=== PATIENT | male | born 1995 | race Caucasian/White ===

== ENCOUNTER 2016-10-20 16:07 | Inpatient (IN) | payer BC ==
[~2016-10-20] VITALS: Ht 167.6 cm; Wt 72.9 kg
[2016-10-20 16:12] VITALS: BP 143/94; PULSE 64; RESP 17; TEMP 98.2; O2SAT 100
--- NOTE | 2016-10-20 16:30 | PD ---
HPI Chief Complaint: Injury Time Seen by Provider: 16:30 Travel History International Travel<30 days: No Contact w/Intl Traveler<30days: No Traveled to known affect area: No History of Present Illness HPI 21-year-old male presents to the emergency department with pain to the right knee after skateboarding accident. Patient states he was skateboarding and his board flipped up and hit him directly in the patella. Patient now is unable to extend the right lower extremity, and has pain below the patella. He felt that "could be dislocated" patient denies pain in the foot or ankle. He denies hip or back pain. He denies any other injury. He has no known drug allergies. Patient last ate at 1530 hrs. Patient has no other medical problems and takes no medications. PFSH Past Medical History Medical History: Denies Significant Hx Tetanus Vaccination: > 5 Years Influenza Vaccination: No (UNKNOWN) Past Surgical History Oral Surgery: Yes (WISDOM TEETH REMOVAL) Tonsillectomy: Yes Social History Alcohol Use: Yes (SOCIALLY) Tobacco Use: No Substance Use: No Allergies-Medications (Allergen,Severity, Reaction): Coded Allergies: No Known Allergies (Unverified , 10/20/16) Reported Meds & Prescriptions Reported Meds & Active Scripts Active No Active Prescriptions or Reported Medications Review of Systems Except as stated in HPI: all other systems reviewed are Neg General / Constitutional: No: Fever Eyes: No: Visual changes HENT: No: Headaches Cardiovascular: No: Chest Pain or Discomfort Respiratory: No: Shortness of Breath Gastrointestinal: No: Abdominal Pain Genitourinary: No: Dysuria Musculoskeletal: Positive: Arthralgias (see history present illness.), Limited ROM, Pain Skin: No Rash Neurologic: No: Weakness Psychiatric: No: Depression Endocrine: No: Polydipsia Hematologic/Lymphatic: No: Easy Bruising Physical Exam Narrative GENERAL: Patient is in mild distress. SKIN: Warm and dry. HEAD: Atraumatic. Normocephalic. EYES: Pupils equal and round. No scleral icterus. No injection or drainage. ENT: No nasal bleeding or discharge. Mucous membranes pink and moist. NECK: Trachea midline. No JVD. CARDIOVASCULAR: Regular rate and rhythm. RESPIRATORY: No accessory muscle use. Clear to auscultation. Breath sounds equal bilaterally. GASTROINTESTINAL: Abdomen soft, non-tender, nondistended. Hepatic and splenic margins not palpable. MUSCULOSKELETAL: Extremities without clubbing, cyanosis, or edema. No obvious deformities. NEUROLOGICAL: Awake and alert. No obvious cranial nerve deficits. Motor grossly within normal limits. Five out of 5 muscle strength in the arms and legs. Normal speech. PSYCHIATRIC: Appropriate mood and affect; insight and judgment normal. Data Data Last Documented VS Vital Signs Date Time Temp Pulse Resp B/P Pulse Ox O2 Delivery O2 Flow Rate FiO2 10/20/16 16:24 18 Room Air 10/20/16 16:12 98.2 64 143/94 100 Orders Basic Metabolic Panel (Bmp) (10/20/16 16:36) Complete Blood Count With Diff (10/20/16 16:36) Prothrombin Time / Inr (Pt) (10/20/16 16:36) Act Partial Throm Time (Ptt) (10/20/16 16:36) Iv Access Insert/Monitor (10/20/16 16:36) Ecg Monitoring (10/20/16 16:36) Oximetry (10/20/16 16:36) NPO (10/20/16 16:36) Morphine Inj (Morphine Inj) (10/20/16 16:45) Ondansetron Inj (Zofran Inj) (10/20/16 16:45) Sodium Chlor 0.9% 1000 Ml Inj (Ns 1000 M (10/20/16 16:36) Sodium Chloride 0.9% Flush (Ns Flush) (10/20/16 16:45) Chest, Single Ap (10/20/16 16:36) Ice/Cold Pack (10/20/16 16:36) Knee, Ltd (1 Or 2vws) (10/20/16 16:36) Splinting (10/20/16 ) Immobilizer Knee 20 Inch (10/20/16 ) Ice Cuff (10/20/16 ) Labs Laboratory Tests Test 10/20/16 17:10 White Blood Count 8.5 TH/MM3 Red Blood Count 4.92 MIL/MM3 Hemoglobin 16.3 GM/DL Hematocrit 47.0 % Mean Corpuscular Volume 95.5 FL Mean Corpuscular Hemoglobin 33.2 PG Mean Corpuscular Hemoglobin 34.8 % Concent Red Cell Distribution Width 12.5 % Platelet Count 204 TH/MM3 Mean Platelet Volume 9.0 FL Neutrophils (%) (Auto) 77.5 % Lymphocytes (%) (Auto) 11.3 % Monocytes (%) (Auto) 10.6 % Eosinophils (%) (Auto) 0.1 % Basophils (%) (Auto) 0.5 % Neutrophils # (Auto) 6.6 TH/MM3 Lymphocytes # (Auto) 1.0 TH/MM3 Monocytes # (Auto) 0.9 TH/MM3 Eosinophils # (Auto) 0.0 TH/MM3 Basophils # (Auto) 0.0 TH/MM3 CBC Comment DIFF FINAL Differential Comment Prothrombin Time 12.0 SEC Prothromb Time International 1.1 RATIO Ratio Activated Partial 23.8 SEC Thromboplast Time Sodium Level 139 MEQ/L Potassium Level 3.9 MEQ/L Chloride Level 100 MEQ/L Carbon Dioxide Level 29.4 MEQ/L Anion Gap 10 MEQ/L Blood Urea Nitrogen 16 MG/DL Creatinine 1.29 MG/DL Estimat Glomerular Filtration 70 ML/MIN Rate Random Glucose 104 MG/DL Calcium Level 9.6 MG/DL MDM Medical Decision Making Medical Screen Exam Complete: Yes Emergency Medical Condition: Yes Differential Diagnosis Right knee contusion. Right knee fracture. Right knee. Narrative Course Patient is medically stable at time of exam. Patient is made nothing by mouth. Labs ordered include a CBC, CMP, PT PTT and INR Right knee x-rays and chest x-ray ordered. IV access is obtained patient is given 4 mg morphine IV as well as 4 mg Zofran IV. Patient is given 1000 miles normal saline bolus. X-ray shows patella fracture with displacement per radiology. 1715 hrs. call was placed to Dr. Blanchard the orthopedic on-call. Splint is ordered with ice cuff. Knee immobilizer with ice compresses placed by myself in the [employer]. Patient was discussed with Dr. Blanchard who recommended admission and nothing by mouth after midnight for surgery in the morning. 1830 hrs. call was placed to hospitalist for admission. Diagnosis Primary Impression: Patellar fracture Qualified Code: S82.031A - Closed displaced transverse fracture of right patella, initial encounter Admitting Information Admitting Physician Requests: Admit Scripts No Active Prescriptions or Reported Meds Condition: Stable Mohsen Onofre Oct 20, 2016 16:30
[2016-10-20] MEDS ORDERED: SODIUM CHLOR 0.9% 1000 ML INJ 1,000 ML IV SCH (16:36)
[2016-10-20] MEDS ORDERED: SODIUM CHLORIDE 0.9% FLUSH 5 ML FLUSH IVF PRN (16:45)
[2016-10-20] MEDS ORDERED: MORPHINE SULFATE 4 MG/ML INJ IV PUSH ONE (16:45)
[2016-10-20] MEDS ORDERED: ONDANSETRON HCL 4 MG/2 ML VIAL IVP ONE (16:45)
[2016-10-20 17:35] LABS: AUTOMATED NEUTROPHIL # 6.6 TH/MM3 (1.8-7.7); BASOPHIL % 0.5 % (0.0-2.0); EOSINOPHIL % 0.1 % (0.0-4.0); HEMO FLAGS DIFF FINAL; LYMPH % 11.3 % (9.0-44.0); MEAN CELL VOLUME 95.5 FL (80.0-100.0); MEAN CORPUSCULAR HEMOGLOBIN 33.2 PG (27.0-34.0); MEAN CORPUSCULAR HGB CONC 34.8 % (32.0-36.0); MONO % 10.6 % (0.0-8.0); NEUT % 77.5 % (16.0-70.0); PLATELET COUNT 204 TH/MM3 (150-450); RED BLOOD COUNT 4.92 MIL/MM3 (4.50-5.90); RED CELL DISTRIBUTION WIDTH 12.5 % (11.6-17.2); WHITE BLOOD COUNT 8.5 TH/MM3 (4.0-11.0)
--- NOTE | 2016-10-20 17:35 | RADRPT ---
EXAM DATE/TIME: 10/20/2016 16:56 [facility] COMPARISON: No previous studies available for comparison. INDICATIONS : Shortness of breath. MEDICAL HISTORY : None. SURGICAL HISTORY : None. ENCOUNTER: Initial ACUITY: 1 day PAIN SCORE: 0/10 LOCATION: Bilateral chest FINDINGS: A single view of the chest demonstrates the lungs to be symmetrically aerated without evidence of mas s, infiltrate or effusion. The cardiomediastinal contours are unremarkable. Osseous structures are intact. CONCLUSION: No acute disease. Gavino Montes De Oca MD on October 20, 2016 at 17:33 Board Certified Radiologist. This report was verified electronically.
--- NOTE | 2016-10-20 17:40 | RADRPT ---
EXAM DATE/TIME: 10/20/2016 16:59 [facility] COMPARISON: No previous studies available for comparison. INDICATIONS : Pain from injury from skateboard ramming upward into knee. MEDICAL HISTORY : None. SURGICAL HISTORY : None. ENCOUNTER: Initial ACUITY: 1 day PAIN SCORE: 10/10 LOCATION: Right knee. FINDINGS: Limited AP and lateral views of the right knee were obtained and demonstrate a transverse fracture th rough the mid patella with the fracture fragment approximately 4 cm. There is overlying sof t tissue swelling. The distal femur, proximal tibia and fibula appear intact. CONCLUSION: Transverse fracture through the mid patella there is Gavino Montes De Oca MD on October 20, 2016 at 17:36 Board Certified Radiologist. This report was verified electronically.
[2016-10-20 17:47] LABS: APTT (PATIENT) 23.8 SEC (24.3-30.1); INTERNATIONAL NORMALIZED RATIO 1.1 RATIO
[2016-10-20 17:59] LABS: BICARBONATE 29.4 MEQ/L (21.0-32.0); POTASSIUM 3.9 MEQ/L (3.5-5.1)
[2016-10-20] MEDS ORDERED: NALOXONE HCL 0.4 MG/ML AMP IV PRN (19:00)
[2016-10-20] MEDS ORDERED: SODIUM CHLORIDE 0.9% FLUSH 5 ML FLUSH FLUSH PRN (19:00)
--- NOTE | 2016-10-20 19:03 | HHI.HP ---
[facility] No Primary Care Physician Admission Diagnosis Right Patellar Fracture Diagnoses: Chief Complaint: Right knee pain Travel History International Travel<30 Days: No Contact w/Intl Traveler <30 Da: No Traveled to Known Affected Are: No History of Present Illness The patient is a 21-year-old male with no significant past medical history who is presenting to the hospital following a skateboarding injury. He was skateboarding and a half pipe earlier today and while doing a maneuver called a "disaster" his board somehow hit him in the knee and the patient had significant pain. He said his left lower extremity went numb for he hit the pavement. He was unable to get up. His friends called for an ambulance and when the paramedics arrived they splinted the leg for him. Imaging revealed a patellar fracture and orthopedic surgery was consulted. The patient said his pain was well-controlled and did not request any pain medications. He had questions regarding how long it would take to start skateboarding again. Review of Systems Except as stated in HPI: all other systems reviewed are Neg Past Family Social History Past Medical History The patient denies pertinent family history. Past Surgical History Tonsillectomy [place] teeth removal Allergies: Coded Allergies: No Known Allergies (Unverified , 10/20/16) Active Ordered Medications Current Medications Medications (Trade) Dose Ordered Sig/Elmer Route Start Time Stop Time Status Last Admin (NS Flush) 2 ml UNSCH PRN IVF 10/20/16 16:45 10/20/16 18:15 Family History The patient denies pertinent family history. Social History The patient does not smoke. He drinks occasionally. He denies illicit drug use. Physical Exam Vital Signs Vital Signs Date Time Temp Pulse Resp B/P Pulse Ox O2 Delivery O2 Flow Rate FiO2 10/20/16 16:24 18 Room Air 10/20/16 16:12 98.2 64 17 143/94 100 Physical Exam GENERAL: No apparent distress, resting comfortably. SKIN: Warm and dry. HEAD: Atraumatic. Normocephalic. EYES: Pupils equal and round. No scleral icterus. No injection or drainage. ENT: No nasal bleeding or discharge. Mucous membranes pink and moist. NECK: Trachea midline. No JVD. CARDIOVASCULAR: Regular rate and rhythm. RESPIRATORY: No accessory muscle use. Clear to auscultation. Breath sounds equal bilaterally. GASTROINTESTINAL: Abdomen soft, non-tender, nondistended. Hepatic and splenic margins not palpable. MUSCULOSKELETAL: Right lower extremity is splinted and with trace edema. No edema in the left lower extremity. NEUROLOGICAL: Awake and alert. No obvious cranial nerve deficits. Motor grossly within normal limits. Normal speech. PSYCHIATRIC: Appropriate mood and affect; insight and judgment normal. Laboratory Laboratory Tests Test 10/20/16 17:10 White Blood Count 8.5 Red Blood Count 4.92 Hemoglobin 16.3 Hematocrit 47.0 Mean Corpuscular Volume 95.5 Mean Corpuscular Hemoglobin 33.2 Mean Corpuscular Hemoglobin 34.8 Concent Red Cell Distribution Width 12.5 Platelet Count 204 Mean Platelet Volume 9.0 Neutrophils (%) (Auto) 77.5 Lymphocytes (%) (Auto) 11.3 Monocytes (%) (Auto) 10.6 Eosinophils (%) (Auto) 0.1 Basophils (%) (Auto) 0.5 Neutrophils # (Auto) 6.6 Lymphocytes # (Auto) 1.0 Monocytes # (Auto) 0.9 Eosinophils # (Auto) 0.0 Basophils # (Auto) 0.0 CBC Comment DIFF FINAL Differential Comment Prothrombin Time 12.0 Prothromb Time International 1.1 Ratio Activated Partial 23.8 Thromboplast Time Sodium Level 139 Potassium Level 3.9 Chloride Level 100 Carbon Dioxide Level 29.4 Anion Gap 10 Blood Urea Nitrogen 16 Creatinine 1.29 Estimat Glomerular Filtration 70 Rate Random Glucose 104 Calcium Level 9.6 Result Diagram: 10/20/16 1710 10/20/16 1710 Imaging Last Impressions Knee X-Ray 10/20/16 1636 Signed Impressions: Service Date/Time: Thursday, October 20, 2016 16:59 - CONCLUSION: Transverse fracture through the mid patella there is Gavino Montes De Oca MD Chest X-Ray 10/20/16 1636 Signed Impressions: Service Date/Time: Thursday, October 20, 2016 16:56 - CONCLUSION: No acute disease. Gavino Montes De Oca MD Assessment and Plan Assessment and Plan Right patellar fracture Sustained after a skateboarding accident. Orthopedic surgery was consulted. - Keep patient nothing by mouth with IV fluids. - Pain control as needed, although the patient is not wanting pain medicine at this time. - Surgery either tonight or tomorrow per orthopedic surgery. - Physical therapy following surgery. - Anticoagulation per orthopedic surgery. Hypertension Exacerbated by pain. - Pain control as needed. PPx: Per surgery. Code Status Full. Discussed Condition With Mohsen Onofre, pt. Physician Certification 2 Midnight Certification Type: Admission for Inpatient Services Order for Inpatient Services The services are ordered in accordance with Medicare regulations or non- Medicare payer requirements, as applicable. In the case of services not specified as inpatient-only, they are appropriately provided as inpatient services in accordance with the 2-midnight benchmark. Estimated LOS (days): 2 days is the estimated time the patient will need to remain in the hospital, assuming treatment plan goals are met and no additional complications. Post-Hospital Plan: Home Gavino Gordon DO Oct 20, 2016 19:03
[2016-10-20 19:31] VITALS: BP 115/56; PULSE 70; RESP 16; O2SAT 99
[2016-10-20] MEDS: SODIUM CHLOR 0.9% 1000 ML INJ 1,000 ML IV SCH (19:34)
[2016-10-20] MEDS: SODIUM CHLORIDE 0.9% FLUSH 5 ML FLUSH FLUSH SCH (19:34)
[2016-10-20 21:00] VITALS: BP 124/76; PULSE 72; RESP 16; TEMP 99.7; O2SAT 99
[2016-10-21] VITALS: BP 121/62; PULSE 69; RESP 16; TEMP 98.1; O2SAT 99
[2016-10-21] MEDS ORDERED: MORPHINE SULFATE 4 MG/ML INJ IV PUSH PRN (00:15)
--- NOTE | 2016-10-21 00:19 | PD.ORT.PN ---
Subjective Subjective Remarks Right knee disfunction Objective Vitals Vital Signs Date Time Temp Pulse Resp B/P Pulse Ox O2 Delivery O2 Flow Rate FiO2 10/20/16 21:00 99.7 72 16 124/76 99 10/20/16 19:31 70 16 115/56 99 10/20/16 16:24 18 Room Air 10/20/16 16:12 98.2 64 17 143/94 100 Result Diagram: 10/20/16 1710 10/20/16 1710 Other Results Laboratory Tests Test 10/20/16 17:10 Prothrombin Time 12.0 SEC (9.8-11.6) Prothromb Time International 1.1 RATIO Ratio Imaging Last 24 hours Impressions Knee X-Ray 10/20/16 1636 Signed Impressions: Service Date/Time: Thursday, October 20, 2016 16:59 - CONCLUSION: Transverse fracture through the mid patella there is Gavino Montes De Oca MD Chest X-Ray 10/20/16 1636 Signed Impressions: Service Date/Time: Thursday, October 20, 2016 16:56 - CONCLUSION: No acute disease. Gavino Montes De Oca MD Objective Remarks Full consult dictated Assessment & Plan Problem List: (1) Fracture of patella, right, closed Assessment and Plan The condition was discussed The options of treatment was discussed The recommendation is ORIF the surgical technique described Informed consent was obtained Kalpesh Blanchard MD Oct 21, 2016 00:19
[2016-10-21] MEDS ORDERED: INSULIN HUMAN REGULAR 1,000 UNITS/10 ML VIAL SQ PRN (02:30)
[2016-10-21 04:00] VITALS: BP 118/67; PULSE 81; RESP 16; TEMP 97; O2SAT 98
[2016-10-21] MEDS ORDERED: SODIUM CHLORID 0.9% 500 ML IV SCH (04:00)
[2016-10-21] MEDS ORDERED: LACTATED RINGER'S 1000 ML IV SCH (04:00)
--- NOTE | 2016-10-21 04:11 | MB ---
cc: MERLIN CAVAZOS M.D. DATE OF CONSULTATION: 10/21/2016 REASON FOR CONSULTATION: Requested to evaluate right displaced patella fracture. HISTORY OF PRESENT ILLNESS: Edgardo Littlejohn is an active healthy 21-year-old male who sustained a skateboard injury to his right knee. He had immediate pain and deformity. He presented to [facility] where x-rays revealed a markedly displaced mid pole patella fracture with inability to straighten his leg. The patient was admitted to the medical service with consultation placed with the undersigned. He has normal white blood cell count, hemoglobin level, coagulation studies normal chemistries with the exception of his estimated GFR which is 70. X-rays reveal markedly displaced mid pole patella fracture. PAST MEDICAL HISTORY: Denies active medical problems. PAST SURGICAL HISTORY: Tonsillectomy. MEDICATIONS: None. ALLERGIES: NONE. SOCIAL HISTORY Positive for alcohol use. Denies tobacco use. 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 PHYSICAL EXAMINATION Alert, oriented, appropriate, evaluated with RN present. HEAD AND NECK: Nontender. Extremities: Upper extremity benign exam, nontender, full range of motion. Left lower extremity nontender. Right lower extremity tender to the level of the knee. Skin intact per ER report. Distal pulses are 2+. Motor sensory, neuro examination intact. Abdomen: Nontender. Chest: Nontender. ASSESSMENT Right mid pole patella fracture, markedly displaced. MEDICAL DECISION MAKING His condition was discussed, the options of treatment were discussed. RECOMMENDATIONS Surgical repair, open reduction internal fixation, different techniques were discussed with the recommended technique, open reduction internal fixation using tension band technique, with the options to determine that intraoperatively. The risk of infection, nerve damage, blood vessel damage, failure of internal fixation, need for revision surgery, need for hardware removal in the future, stiffness of the knee and decreased range of motion all discussed as well as possibility of post traumatic arthritic change to the patella. He has a good understanding and wishes to press on with surgery. Detailed informed consent was obtained. MD EVERETT Castaneda/JES /12:23 AM /3:42 AM
[2016-10-21] MEDS: SODIUM CHLOR 0.9% 1000 ML INJ 1,000 ML IV SCH (04:55)
[2016-10-21] MEDS ORDERED: GENTAMICIN SULFATE 80 MG/2 ML VIAL ONE (06:19)
[2016-10-21 06:46] LABS: AUTOMATED NEUTROPHIL # 4.4 TH/MM3 (1.8-7.7); BASOPHIL % 0.6 % (0.0-2.0); EOSINOPHIL # 0.1 TH/MM3 (0-0.4); EOSINOPHIL % 1.3 % (0.0-4.0); HEMATOCRIT 42.8 % (39.0-51.0); HEMO FLAGS DIFF FINAL; LYMPH % 29.6 % (9.0-44.0); LYMPHOCYTE # 2.2 TH/MM3 (1.0-4.8); MEAN CELL VOLUME 96.4 FL (80.0-100.0); MEAN CORPUSCULAR HEMOGLOBIN 33.2 PG (27.0-34.0); MEAN CORPUSCULAR HGB CONC 34.5 % (32.0-36.0); NEUT % 58.5 % (16.0-70.0); PLATELET COUNT 171 TH/MM3 (150-450); RED BLOOD COUNT 4.44 MIL/MM3 (4.50-5.90); RED CELL DISTRIBUTION WIDTH 12.7 % (11.6-17.2); WHITE BLOOD COUNT 7.6 TH/MM3 (4.0-11.0)
[2016-10-21 07:22] LABS: BICARBONATE 29.6 MEQ/L (21.0-32.0); POTASSIUM 3.8 MEQ/L (3.5-5.1)
[2016-10-21 08:00] VITALS: BP 121/72; PULSE 61; RESP 18; TEMP 96.8; O2SAT 100
[2016-10-21] MEDS: SODIUM CHLORIDE 0.9% FLUSH 5 ML FLUSH FLUSH SCH (09:00)
[2016-10-21] MEDS ORDERED: MIDAZOLAM HCL 2 MG/2 ML VIAL ONE (10:58)
[2016-10-21] MEDS ORDERED: ACETAMINOPHEN 1000 MG/100 ML VIAL IV ONE (10:59)
[2016-10-21] MEDS ORDERED: ceFAZolin 2 GM PREMIX 50 ML ONE (11:08)
[2016-10-21] MEDS ORDERED: VANCOMYCIN HCL 1000 MG VIAL ONE (11:08)
[2016-10-21] MEDS ORDERED: ceFAZolin INJ 1,000 MG VIAL IV ONE (11:36)
[2016-10-21] MEDS ORDERED: LACTATED RINGER'S 1000 ML INJ 1,000 ML IV ONE (12:02)
[2016-10-21] MEDS ORDERED: PROPOFOL 200 MG/20 ML AMP IV ONE (12:02)
[2016-10-21] MEDS ORDERED: ONDANSETRON HCL 4 MG/2 ML VIAL IV PUSH ONE (12:02)
[2016-10-21] MEDS ORDERED: KETOROLAC TROMETHAMINE 60 MG/2 ML (IM) VIAL IM ONE (12:02)
[2016-10-21] MEDS ORDERED: NEOSTIGMINE 3 MG/3 ML SYR IV ONE (12:02)
[2016-10-21] MEDS ORDERED: BUPIVACAINE/EPINEPHRINE 0.25% 50 ML VIAL ONE (12:40)
--- NOTE | 2016-10-21 13:09 | PD.OP ---
Operative Report Preoperative Diagnosis: (1) Fracture of patella, right, closed Postoperative Diagnosis: (1) Fracture of patella, right, closed Procedure: ORIF Right Patella Fracture Anesthesia: General Surgeon: Kalpesh Blanchard MD [employer] Processor(s): Yong CHADWICK Operation and Findings: see dictation Kalpesh Blanchard MD Oct 21, 2016 13:09
[2016-10-21] MEDS ORDERED: SODIUM CHLORIDE 0.9% FLUSH 5 ML FLUSH IVF PRN (13:15)
[2016-10-21] MEDS ORDERED: ACETAMINOPHEN/HYDROcodone 325 MG/5 MG TAB PO PRN ×2 (13:15)
[2016-10-21] MEDS ORDERED: Post-op Orders (for Pharmacy) MISC XX ONE (13:15)
[2016-10-21] MEDS ORDERED: diphenhydrAMINE HCL 25 MG CAP PO PRN (13:15)
[2016-10-21] MEDS ORDERED: fentaNYL CITRATE 250 MCG/5 ML AMP ONE (13:20)
[2016-10-21] MEDS ORDERED: MORPHINE SULFATE 4 MG/ML INJ ONE (13:21)
[2016-10-21] MEDS ORDERED: *MEPERIDINE 25 MG INJ VIAL PERIprocedural Use ONLY ONE (13:27)
[2016-10-21] MEDS ORDERED: DO NOT ADM ANY ANTICOAGULANT DRUGS XX PRN (13:30)
--- NOTE | 2016-10-21 15:34 | HHI.FF ---
Face to Face Verification Diagnosis: (1) Fracture of patella, right, closed Physical Therapy Order: Evaluate and Treat, Improve ambulation, Strength and gait training I have seen patient Edgardo Littlejohn on 10/21/16. My clinical findings support the need for the requested home health care services because: High risk of falls I certify that my clinical findings support that this patient is homebound because: Post-op weakness Gavino Gordon DO Oct 21, 2016 15:34
[2016-10-21] MEDS ORDERED: OXYC1CAP PO (15:53)
--- NOTE | 2016-10-21 15:56 | HHI.DCPOC ---
Discharge Care Plan Diagnosis: (1) Fracture of patella, right, closed Your Health Problems Are: Incision/Drains Leg Swelling Exercise Tolerance Loss of Movements Goals to Promote Your Health * To prevent worsening of your condition and complications * To maintain your health at the optimal level Directions to Meet Your Goals Take your medications as prescribed Follow your dietary instruction Follow activity as directed Keep your appointments as scheduled Take your immunizations and boosters as scheduled If your symptoms worsen call your PCP, if no PCP go to Urgent Care Center or Emergency Room Smoking is Dangerous to Your Health. Avoid second hand smoke Call the 24-hour hour crisis hotline for domestic abuse at Gavino Gordon DO Oct 21, 2016 15:56
[2016-10-21 16:00] VITALS: BP 135/76; PULSE 50; RESP 18; TEMP 96.8; O2SAT 100
--- NOTE | 2016-10-21 16:00 | HHI.PR ---
Subjective Remarks The patient was resting in bed comfortably. He wanted to go home today if possible. He said his pain was 0 out of 10. He has crutches. Discussed with nursing and case management. Objective Vitals Vital Signs Date Time Temp Pulse Resp B/P Pulse Ox O2 Delivery O2 Flow Rate FiO2 10/21/16 13:45 97.7 60 15 153/88 98 Room Air 10/21/16 13:30 58 15 135/84 97 Room Air 10/21/16 13:15 55 14 154/98 100 Room Air 10/21/16 13:07 97.7 89 14 163/96 99 Nasal Cannula 2 10/21/16 08:00 96.8 61 18 121/72 100 10/21/16 04:00 97.0 81 16 118/67 98 10/21/16 00:00 98.1 69 16 121/62 99 10/20/16 21:00 99.7 72 16 124/76 99 10/20/16 19:31 70 16 115/56 99 10/20/16 16:24 18 Room Air 10/20/16 16:12 98.2 64 17 143/94 100 I/O 10/20/16 10/20/16 10/20/16 10/21/16 10/21/16 10/21/16 07:00 15:00 23:00 07:00 15:00 23:00 Intake Total 600 ml 0 ml 1000 ml Output Total 800 ml 800 ml 100 ml Balance -200 ml -800 ml 900 ml Intake Oral 600 ml 0 ml IV Total 100 ml Other 900 ml Output Urine Total 800 ml 800 ml 0 ml Estimated Blood Loss 100 ml Result Diagram: 10/21/16 0545 10/21/16 0545 Imaging Last Impressions Knee X-Ray 10/20/161635 Signed Impressions: Service Date/Time: Thursday, October 20, 2016 16:59 - CONCLUSION: Transverse fracture through the mid patella there is Gavino Montes De Oca MD Chest X-Ray 10/20/161635 Signed Impressions: Service Date/Time: Thursday, October 20, 2016 16:56 - CONCLUSION: No acute disease. Gavino Montes De Oca MD Objective Remarks GENERAL: No apparent distress, resting comfortably. SKIN: Warm and dry. HEAD: Atraumatic. Normocephalic. EYES: Pupils equal and round. No scleral icterus. No injection or drainage. ENT: No nasal bleeding or discharge. Mucous membranes pink and moist. NECK: Trachea midline. No JVD. CARDIOVASCULAR: Regular rate and rhythm. RESPIRATORY: No accessory muscle use. Clear to auscultation. Breath sounds equal bilaterally. GASTROINTESTINAL: Abdomen soft, non-tender, nondistended. Hepatic and splenic margins not palpable. MUSCULOSKELETAL: Right lower extremity is splinted and with trace edema. No edema in the left lower extremity. NEUROLOGICAL: Awake and alert. No obvious cranial nerve deficits. Motor grossly within normal limits. Normal speech. PSYCHIATRIC: Appropriate mood and affect; insight and judgment normal. Procedures Right patella fracture repair 10/21. Medications and IVs Current Medications Medications (Trade) Dose Ordered Sig/Elmer Route Start Time Stop Time Status Last Admin (NS Flush) 2 ml UNSCH PRN FLUSH 10/20/16 19:00 (NS Flush) 2 ml BID FLUSH 10/20/16 21:00 10/20/16 19:34 (Narcan Inj) 0.4 mg UNSCH PRN IV 10/20/16 19:00 Morphine Sulfate 4 mg 4 mg Q3H PRN IV PUSH 10/21/16 00:15 Lactated Ringer's 1,000 ml @ 30 mls/hr Q24H IV 10/21/16 04:00 (NS 500 ml Inj) 500 ml @ 30 mls/hr [id number] IV 10/21/16 04:00 10/22/16 03:59 (NS Flush) 2 ml UNSCH PRN IVF 10/21/16 13:15 (NS Flush) 2 ml BID IVF 10/21/16 21:00 ([place] 5-325 Mg) 1 tab Q4H PRN PO 10/21/16 13:15 ([place] 5-325 Mg) 2 tab Q6H PRN PO 10/21/16 13:15 (Benadryl) 25 mg Q6H PRN PO 10/21/16 13:15 Miscellaneous Information ALL NURSING DEPARTME... UNSCH PRN XX 10/21/16 13:30 10/22/16 13:29 (Ancef Inj/NS Inj) 100 ml @ 200 mls/hr Q8H IV 10/21/16 19:00 10/21/16 18:59 UNV A/P Assessment and Plan Right patellar fracture Sustained after a skateboarding accident. Orthopedic surgery was consulted. S/ p repair 10/21. - Pain control as needed, although the patient is not wanting pain medicine at this time. - outpt physical therapy. - follow up with orthopedic surgery as an outpt. - antibiotics per ortho. Hypertension Exacerbated by pain. Resolved. - Pain control as needed. PPx: Per surgery. Discharge Planning Discharge home. Gavino Gordon DO Oct 21, 2016 16:00
[2016-10-21] MEDS ORDERED: SODIUM CHLORIDE 0.9% FLUSH 5 ML FLUSH IVF SCH (21:00)
--- NOTE | 2016-10-21 21:04 | RADRPT ---
EXAM DATE/TIME: 10/21/2016 12:29 [facility] COMPARISON: KNEE RIGHT LTD (1 OR 2 VWS), October 20, 2016, 16:59. INDICATIONS : Open reduction right patella. MEDICAL HISTORY : None. SURGICAL HISTORY : None. ENCOUNTER: Subsequent ACUITY: 2 days PAIN SCORE: Non-responsive. LOCATION: Right lateral FINDINGS: Coned-down views of the right knee were obtained in AP and lateral projections. This demonstrates int erval placement of cerclage wires surrounding the patella with reduction of the previously noted frac ture. The fracture fragments are in anatomic alignment. The distal femur and proximal tibia are intac t. CONCLUSION: Status post open rigid internal fixation. Gavino Montes De Oca MD on October 21, 2016 at 21:01 Board Certified Radiologist. This report was verified electronically.
--- NOTE | 2016-10-22 13:55 | MP ---
cc: MERLIN CAVAZOS M.D. DATE OF SURGERY: 10/21/2016 PREOPERATIVE DIAGNOSIS Mid inferior patella fracture, markedly displaced. POSTOPERATIVE DIAGNOSIS Mid inferior patella fracture, markedly displaced. PROCEDURE Right patella open reduction, internal fixation. ANESTHESIA General. SURGEON Merlin Cavazos MD FUEL AGENT SURGEON NETTA Galindo ESTIMATED BLOOD LOSS 200 cc, which was primarily due to knee hematoma. 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 He was indicated for surgical repair. The risks and benefits were thoroughly discussed and a detail informed consent was obtained. DETAILS OF PROCEDURE The patient was brought into the operating room. He was placed under general anesthetic. The right lower extremity was prepped and draped in the usual sterile fashion. IV antibiotics were given. A timeout was completed. It should be noted that visual merchandising assistant Yong Felton is an advanced registered nurse practitioner. His skill set was medically necessary for the performance of the operation. We had a tourniquet but we did not use it. An anterior approach to the knee. Came down to a large hematoma inside the knee. Exposed the fracture site. Anatomically aligned and clamped with a large fracture tenaculum and then use vertically oriented 0.62 K-wires to the inferior pole and then calculated the length and backed this up and then bent and cut and then used 14-gauge Angiocaths to pass two wires in a [id number] fashion. One was to be tightened on the inferior medial aspect and the other superior lateral aspect of the knee in a urhjxz-tr-[id number] configuration. We partially tightened and then we impacted our K-wires further in place. We were intermittently using fluoroscopy to confirm our overall alignment. We proceeded and tightened the wires and then identified the superior aspect of the K-wire and clipped this. We had gravity flexion to 135 degrees. We again irrigated out with copious amounts of irrigation. Hemostasis was excellent. We placed multiple #2 FiberWire [id number] sutures in the medial retinaculum and lateral retinaculum. We again irrigated out with copious amounts of irrigation and proceeded to anatomically repair in layers with absorbable suture and eventually Steri-Strips on the skin. The patient was awoken and returned to the recovery room in stable condition. MD EVERETT Castaneda/SHREYA /4:23 PM /1:39 PM
== END 2016-10-21 22:30 | disposition home or self-care (01) | DRG 517 ==
LOC: NEPC 16:07 → NEDA 18:53 → N06B 20:12
PROVIDERS: ADMIT Hospitalist; ATTEND Hospitalist
PROC: 0QSD04Z Reposition Right Patella with Internal Fixation Device, Open Approach (ICD-10-PCS; principal; 2016-10-21 10:59)
DX: S82.031A Displaced transverse fracture of right patella, initial encounter for closed fracture (principal); I10 Essential (primary) hypertension; W18.39XA Other fall on same level, initial encounter; Y93.51 Activity, roller skating (inline) and skateboarding; Y92.9 Unspecified place or not applicable; Y99.9 Unspecified external cause status
CPT/HCPCS: 71010; 73560; 76000; 80048; 85025; 85610; 85730; 94150; 96360; E0113; J0131; J0690; J1580; J1885; J2175; J2250; J2270; J2405; J2710; J3010; J3370; J7030; J7120; L1830